=== PATIENT | male | born 1935 | race Caucasian/White ===

== ENCOUNTER → 2019-05-03 | Outpatient (CLI) | payer MEDICARE, OTHER | END | disposition home or self-care (01) | LOC: CARD 09:35 | PROVIDERS: ATTEND Nurse Practitioner Family | DX: R55 Syncope and collapse (principal); R79.89 Other specified abnormal findings of blood chemistry; J98.6 Disorders of diaphragm | CPT/HCPCS: 93017; 93350 ==

== ENCOUNTER 2020-09-15 10:48 | Emergency (ER) | payer MEDICARE, OTHER ==
[~2020-09-15] VITALS: Ht 180.3 cm; Wt 82.0 kg
--- NOTE | 2020-09-15 11:05 | NUR ---
BIB [facility] FROM [address] [place] [address] WHERE HE HAS HAD A COUGH SINCE YESTERDAY AND THEY HAVE HAD 2 OTHER PT W/ PNA AND THEY WANT TO R/O FOR PT. HE HAS BEEN AFEBRILE. PER YOSEFSA THEY DID HEAR CRACKLES. VSS-118/78, HR 71, 91% RA HX GOUT, MEMORY. ALLERGY TO SULFA. PT IN GOWN, EKG COMPLETE, ON VS MACHINE. NADN. CALL LIGHT W/ IN REACH.
[2020-09-15 11:33] LABS: BASOPHILS % (AUTO) 1 % (0-1); EOSINOPHILS % (AUTO) 1 % (1-7); LYMPHOCYTES % (AUTO) 26 % (22-44); MEAN CORPUSCULAR HGB CONC 34.2 g/dL (33.2-36.2); MEAN PLATELET VOLUME 8.1 fL (7.4-10.4); MONOCYTES % (AUTO) 12 % (2-9); NEUTROPHILS % (AUTO) 61 % (42-75); PLATELET COUNT 150 x10^3/uL (130-400); RED BLOOD COUNT 3.51 x10^6/uL (4.38-5.82); RED CELL DISTRIBUTION WIDTH 15.1 % (9.4-14.8)
[2020-09-15 11:44] LABS: ALBUMIN 3.4 g/dL (3.4-5.0); ANION GAP 6 mmol/L (5-15); CALCIUM 8.5 mg/dL (8.5-10.1); CHLORIDE 109 mmol/L (98-107); CREATININE 1.35 mg/dL (0.7-1.3)
--- NOTE | 2020-09-15 12:25 | NUR ---
PT STILL NEEDS TO PROVIDE URINE SAMPLE, URINAL IS BEDSIDE AND ENCOURAGED PT TO TRY. ADDIS DELAROSA.
--- NOTE | 2020-09-15 12:37 | NUR ---
PT ABLE TO PROVIDE SMALL AMOUNT OF URINE, SAMPLE WALKED DOWN. NADN. DAUGHTER BEDSIDE AND STATES WHEN DC THEY CAN TAKE HIM HIM BACK TO HIS FACILITY.
[2020-09-15 12:50] LABS: MICROSCOPIC NOT IND
[2020-09-15 13:50] VITALS: BP 125/72
--- NOTE | 2020-09-15 13:51 | NUR ---
Patient and daughter given discharge instructions and they have confirmed that they understand the instructions. Patient ambulatory with steady gait.
--- NOTE | 2020-09-15 13:54 | NUR ---
CALLED PT FACILITY AND SPOKE WITH ROSLYN MIRZA WHO SAID SHE WOULD LET ASSISTED LIVING KNOW PT IS RETURNING.
== END 2020-09-15 14:09 | disposition home or self-care (01) ==
LOC: ED 10:50
DX: J06.9 Acute upper respiratory infection, unspecified (principal); R94.31 Abnormal electrocardiogram [ECG] [EKG]
CPT/HCPCS: 36415; 71045; 80048; 81003; 82040; 85025; 93005; 99285